=== PATIENT | female | born 1965 | race Caucasian/White ===

== ENCOUNTER → 2016-09-23 | Outpatient (CLI) | payer OTHER | LOC: RT 16:40 | DX: R07.9 Chest pain, unspecified (principal); I51.7 Cardiomegaly; R94.31 Abnormal electrocardiogram [ECG] [EKG] | CPT/HCPCS: 93005 ==

== ENCOUNTER 2016-10-27 00:06 | Emergency (ER) | payer OTHER ==
[2016-10-27 02:57] LABS: HEMOGLOBIN 15.3 gm/dl (12.3-15.3); RED BLOOD COUNT 4.53 M/UL (4.00-5.10); WHITE BLOOD COUNT 9.2 K/UL (4.5-11.0)
[2016-10-27 03:17] LABS: BUN/CREATININE RATIO 9 (0-10)
== END 2016-10-27 08:22 | disposition home or self-care (01) ==
LOC: ER1 00:06
PROVIDERS: Emergency Medicine
DX: K92.0 Hematemesis (principal); E78.00 Pure hypercholesterolemia, unspecified; R10.9 Unspecified abdominal pain; R07.89 Other chest pain
CPT/HCPCS: 36415; 70450; 71020; 80053; 81001; 83690; 83880; 84484; 85025; 85610; 85730; 86850; 86900; 86901; 87086; 93005; 94640; 96374; 96375; 99285; J1200; J2405; J7030; J7050; Q9963

== ENCOUNTER → 2016-10-29 | Outpatient (CLI) | payer OTHER | LOC: HEART 5 07:30 | DX: R07.9 Chest pain, unspecified (principal); R06.00 Dyspnea, unspecified; R53.83 Other fatigue; E78.5 Hyperlipidemia, unspecified; R26.0 Ataxic gait; M54.9 Dorsalgia, unspecified; R94.39 Abnormal result of other cardiovascular function study; I34.0 Nonrheumatic mitral (valve) insufficiency; I08.1 Rheumatic disorders of both mitral and tricuspid valves | CPT/HCPCS: 78452; 93306; A9502; J2785 ==